=== PATIENT | male | born 1995 | race Caucasian/White ===

== ENCOUNTER → 2018-09-05 | Emergency (ER) | payer OTHER ==
[~2018-09-05] VITALS: Ht 160 cm; Wt 54.4 kg
[~2018-09-05] MED LIST: CONEX TABLET1 EACH PO; ZYNCOF 20-400120 ML PO
== END | disposition home or self-care (01) ==
LOC: ER 22:56
DX: B34.9 Viral infection, unspecified (principal); R50.9 Fever, unspecified

== ENCOUNTER → 2019-04-25 08:50 | Outpatient (CLI) | payer OTHER | END | disposition home or self-care (01) | LOC: LAB 08:50 | DX: R19.07 Generalized intra-abdominal and pelvic swelling, mass and lump (principal); R10.13 Epigastric pain ==

== ENCOUNTER → 2019-04-27 10:20 | Outpatient (CLI) | payer OTHER | END | disposition home or self-care (01) | LOC: LAB 10:20 | DX: R19.5 Other fecal abnormalities (principal); R10.13 Epigastric pain ==

== ENCOUNTER 2020-11-02 20:31 | Emergency (ER) | payer OTHER ==
[~2020-11-02] VITALS: Ht 160 cm; Wt 57.2 kg
== END 2020-11-03 02:40 | disposition home or self-care (01) ==
LOC: ER 20:31
DX: R10.31 Right lower quadrant pain (principal)

== ENCOUNTER 2021-01-23 18:30 | Emergency (ER) | payer OTHER ==
[~2021-01-23] VITALS: Ht 160 cm; Wt 56.2 kg
[2021-01-23] MEDS ORDERED: CLARITIN (18:50)
[2021-01-23] MEDS ORDERED: [UNRECOGNIZED DRUG - OTHER] (18:52)
== END 2021-01-23 22:38 | disposition home or self-care (01) ==
LOC: ER 18:30
DX: J32.8 Other chronic sinusitis (principal)

== ENCOUNTER 2022-07-27 13:30 | Emergency (ER) | payer OTHER ==
[~2022-07-27] VITALS: Ht 160 cm; Wt 56.2 kg
[~2022-07-27 13:30] MED LIST changes: +CLARITIN; +[UNRECOGNIZED DRUG - OTHER]
[2022-07-27] MEDS ORDERED: ZITHROMAX500 MG PO (17:52)
[2022-07-27] MEDS ORDERED: TUSNEL LIQUID178 ML PO (17:52)
[2022-07-27] MEDS ORDERED: ZOFRAN8 MG PO (17:52)
[2022-07-27] MEDS ORDERED: DOLOGEN CAPLET1 EACH PO (17:53)
== END 2022-07-27 18:05 | disposition home or self-care (01) ==
LOC: ER 13:30
DX: U07.1 COVID-19 (principal); Z88.6 Allergy status to analgesic agent; K51.90 Ulcerative colitis, unspecified, without complications; E86.0 Dehydration; K29.70 Gastritis, unspecified, without bleeding